=== PATIENT | female | born 1935 | race Native Hawaiian/Other Pacific Islander ===

== ENCOUNTER 2022-12-06 09:21 | Inpatient (IN) | payer OTHER, BC ==
[2022-12-07 07:51] LABS: PLATELET COUNT 306 K/uL (152-353)
== END 2022-12-13 08:56 | disposition still patient (30) ==
LOC: PAVB 09:21
PROVIDERS: ADMIT Family Medicine; ATTEND Family Medicine
DX: S82.032D Displaced transverse fracture of left patella, subsequent encounter for closed fracture with routine healing (principal); M11.262 Other chondrocalcinosis, left knee; M62.81 Muscle weakness (generalized); R26.2 Difficulty in walking, not elsewhere classified; R41.841 Cognitive communication deficit; Z74.1 Need for assistance with personal care
CPT/HCPCS: 85027; 87081

== ENCOUNTER 2023-01-10 14:58 | Inpatient (IN) | payer OTHER, BC | END 2023-01-12 09:13 | disposition home health service (06) | LOC: PAVB 14:58 | PROVIDERS: ADMIT Family Medicine; ATTEND Family Medicine | DX: S82.032D Displaced transverse fracture of left patella, subsequent encounter for closed fracture with routine healing (principal); M11.262 Other chondrocalcinosis, left knee; M62.81 Muscle weakness (generalized); R26.2 Difficulty in walking, not elsewhere classified; R41.841 Cognitive communication deficit; Z74.1 Need for assistance with personal care ==